=== PATIENT | male | born 1975 | race Two or more races ===

== ENCOUNTER 2025-01-03 08:07 | Emergency (ER) | payer MEDICAID, SELFPAY ==
--- NOTE | 2025-01-03 08:19 | EKG_ITS ---
[facility] Test Date: 2025-01-03 Pat Name: AMBROCIO SAVAGE Department: Room: - Gender: Male Food Services Manager: : 1975 Requested By: ED Temporary Provider Order Number: [id number] Reading MD: ED Temporary Provider Measurements Intervals [place] Rate: 80 P: 40 MS: 157 QRS: 6 QRSD: 94 T: -3 QT: 339 QTc: 392 Interpretive Statements SINUS RHYTHM No previous ECG available for comparison /store/[email or web address]/[id number]
[2025-01-03 08:25] VITALS: BP 150/100; PULSE 76; RESP 19; TEMP 36.8; O2SAT 97
--- NOTE | 2025-01-03 08:32 | XR_ITS ---
Examination: PA lateral chest 2 views TECHNIQUE: Upright PA lateral chest 2 views Exam date and time clinical 2024 0948 hours INDICATIONS: Onset chest pain today FINDINGS: Normal heart size Lungs are clear. The osseous structures are intact IMPRESSION: No active disease
--- NOTE | 2025-01-03 08:32 | PD.EDRME ---
Rapid Medical Screening Exam RME Arrival date/time: 01/03/25 08:07 49-year-old male with a history of hyperlipidemia, hypertension presents to the emergency room with a chief complaint of 9 out of 10 sternal chest pain that radiates to his upper back x 1 day I have greeted and performed a focused initial assessment of this patient. A comprehensive ED assessment and evaluation of the patient, analysis of all test results, and completion of the medical decision making process will be conducted by additional ED providers. Chief Complaint: Chest Pain Vital signs: Vital Signs Temperature 98.2 F 01/03/25 08:25 Pulse Rate 76 01/03/25 08:25 Respiratory Rate 19 01/03/25 08:25 Blood Pressure 150/100 H 01/03/25 08:25 Pulse Oximetry (%) 97 01/03/25 08:25 Oxygen Delivery Method Room Air 01/03/25 08:25 Vital signs reviewed by provider: Yes
[2025-01-03 10:41] LABS: Basophils # (Auto) 0.1 Thou/mm3 (0.0-0.2); Basophils % (Auto) 1 % (0-2.5); Eosinophils # (Auto) 0.2 Thou/mm3 (0.0-0.5); Eosinophils % (Auto) 4 % (0-10); Hematocrit 45.5 % (41.0-53.0); Hemoglobin 15.5 g/dL (13.5-16.0); Immature Granulocytes % (Auto) 0 % (0-0); Immature Granulocytes Auto 0.02 Thou/mm3 (0.00-0.00); Lymphocytes # (Auto) 1.9 Thou/mm3 (1.0-4.8); Lymphocytes % (Auto) 31 % (10-50); Mean Corpuscular HGB Conc 34.1 g/dl (31.0-37.0); Mean Corpuscular Hemoglobin 29.9 pg (25.0-35.0); Mean Corpuscular Volume 88 fL (80-100); Monocytes # (Auto) 0.5 Thou/mm3 (0.0-0.8); Monocytes % (Auto) 8 % (0-12); Neutrophils # (Auto) 3.5 Thou/mm3 (1.8-7.7); Neutrophils % (Auto) 57 % (37-80); Nucleated Red Blood Cell % 0 /100 WBC (0); Platelet Count 181 Thou/mm3 (140-440); RDW Standard Deviation 43.2 fL (35.1-43.9); Red Blood Count 5.19 Miln/mm3 (4.50-5.90); White Blood Count 6.2 Thou/mm3 (3.8-10.6)
[2025-01-03 10:55] LABS: Partial Thromboplastin Time 27.9 Seconds (22.0-36.0); Prothrombin Time 10.8 Seconds (9.0-12.2)
[2025-01-03 11:00] LABS: B-Type Natriuretic Peptide < 20 pg/mL (0-100); Carbon Dioxide 29.1 mMol/L (20.0-31.0); Chloride 106 mMol/L (98-107); Potassium 4.5 mMol/L (3.4-5.1); Sodium 139 mMol/L (136-145)
[2025-01-03 11:01] LABS: Alanine Aminotransferase 32 U/L (10-49); Albumin, Serum 4.5 gm/dL (3.5-5.0); Albumin/Globulin Ratio 1.4 (1.2-2.2); Alkaline Phosphatase 66 U/L (46-116); Anion Gap 4 (7-16); Aspartate Amino Transferase 25 U/L (0-34); BUN/Creatinine Ratio 14 Ratio (12-20); Bilirubin,Total 0.7 mg/dL (0.3-1.2); Blood Urea Nitrogen 11 mg/dL (9-23); Calcium 9.9 mg/dL (8.3-10.6); Calcium (Corrected) 9.9 mg/dL (8.5-10.1); Creatinine (Component) 0.8 mg/dL (0.6-1.3); Globulin 3.2 gm/dL (2.3-3.5); Glucose 106 mg/dL (74-106); Osmolality,Calculated 276 (275-295); Total Protein 7.7 gm/dL (5.7-8.2); Troponin I < 0.002 ng/mL (0.0-0.045); eGFR > 60 See Note
[2025-01-03 12:22] LABS: Collection Type, Urine Clean Catch; Squamous Epithelial Cell,Urine 0 /hpf (0-5)
[2025-01-03 12:30] LABS: Bilirubin,Urine Negative (Negative); Blood,Urine Negative (Negative); Clarity,Urine Clear (Clear/Hazy); Color,Urine Lt-Yellow (Lt Yel-Yel); Glucose, Urine Negative (Negative); Ketones,Urine Negative (Negative); Leukocyte Esterase,Urine Negative (Negative); Nitrite,Urine Negative (Negative); PH,Urine 6.5 (5.0-7.0); Protein,Urine Negative (Neg - Trace); RBC,Urine 2 /hpf (0-3); Urobilinogen,Urine Negative mg/dL (0.0-1.0); WBC,Urine 1 /hpf (0-5)
[2025-01-03 12:36] LABS: Amphetamine/Methamp Scrn,U Negative (Negative); Barbiturate Screen,Urine Negative (Negative); Benzodiazepines Screen,Urine Negative (Negative); Benzoylecgonine Screen, Ur Negative (Negative); Fentanyl Screen,Urine Negative (Negative); Opiate Screen,Urine Negative (Negative); THC Screen,Urine Negative (Negative)
--- NOTE | 2025-01-03 13:34 | EDNOTE_ITS ---
ED Chest Pain RME/HPI General Chief Complaint: Chest Pain Stated Complaint: CHEST PAIN, BACK PAIN, STARTED ABOUT MN Arrival date/time: 01/03/25 08:07 Limitations: no limitations RME / HPI RME / HPI narrative: 01/03/25 08:07 49-year-old male with a history of hyperlipidemia, hypertension presents to the emergency room with a chief complaint of 9 out of 10 sternal chest pain that radiates to his upper back x 1 day I have greeted and performed a focused initial assessment of this patient. A comprehensive ED assessment and evaluation of the patient, analysis of all test results, and completion of the medical decision making process will be conducted by additional ED providers. DR. BOWEN MAIN ED EVALUATION: 49 year old male with no past medical history presents to the Emergency Department with complaint of chest pain since 1 AM today. Pain is mostly in the mid chest area radiating straight back to his mid back area. Movement exacerbates the pain. No other symptoms reported at this time. Related Data Allergies Allergy/AdvReac Type Severity Reaction Status Date / Time No Known Allergies Allergy Verified 01/03/25 08:17 Review of Systems Review of Systems Systems Reviewed: All systems reviewed, normal except as documented Past Medical History Past Medical History CARDIAC: Negative Cardiac Disorders RESPIRATORY: Negative Asthma GENITOURINARY: Negative Renal Disease ENDOCRINE: Negative Diabetes Mellitus Type 2 HEMATOLOGIC: Negative Sickle Cell Disease Social History SMOKING STATUS: Never smoker SUBSTANCE USE: does not use ALCOHOL: Never ED Exam General Limitations: Present no limitations General appearance: Present alert and in no apparent distress Head Head exam: Present atraumatic, normocephalic and normal inspection Eye Eye exam: Present normal appearance, PERRL and EOMI ENT ENT exam: Present normal exam, normal oropharynx and mucous membranes moist Neck Neck exam: Present normal inspection, full ROM and trachea midline Chest Chest inspection: Present normal inspection and symmetric chest wall rise Respiratory Respiratory exam: Present normal lung sounds bilaterally Cardiovascular Cardiovascular exam: Present regular rate, normal rhythm and normal heart sounds Abdominal Exam Abdominal exam: Present soft and normal bowel sounds Extremities Exam Extremities exam: Present normal inspection and full ROM Back Exam Back exam: Present full ROM and paraspinal tenderness (tenderness in the T10- T12, bilateral paraspinal muscles) Neurological Exam Neurological exam: Present alert, oriented X3 and CN II-XII intact Psychiatric Psychiatric exam: Present normal affect and normal mood Skin Skin exam: Present warm, dry, intact and normal color Course Quality Measures none Orders Category Date Time Status CT Screening NOW Care 01/03/25 13:57 Active EKG (ED ONLY) *Do not use* NOW Care 01/03/25 08:[address] angio chest abdomen pelvis Stat Exams 01/03/25 13:56 Completed EKG (ED Only) Stat Exams 01/03/25 08:19 Draft XR chest 2V Stat Exams 01/03/25 08:32 Completed B-Type Natriuretic Peptide Stat Lab 01/03/25 10:35 Completed CBC Stat Lab 01/03/25 10:35 Completed Comprehensive Metabolic Panel Stat Lab 01/03/25 10:35 Completed Drug Screen,Urine Stat Lab 01/03/25 11:49 Completed Magnesium Stat Lab 01/03/25 10:35 Completed Partial Thromboplastin Time Stat Lab 01/03/25 10:35 Completed Prothrombin Time with INR Stat Lab 01/03/25 10:35 Completed Troponin I Stat Lab 01/03/25 10:35 Completed Urinalysis Stat Lab 01/03/25 11:49 Completed Vital Signs Vital signs: Vital Signs Temperature 98.2 F 01/03/25 08:25 Pulse Rate 76 01/03/25 08:25 Respiratory Rate 19 01/03/25 08:25 Blood Pressure 150/100 H 01/03/25 08:25 Pulse Oximetry (%) 97 01/03/25 08:25 Oxygen Delivery Method Room Air 01/03/25 08:25 Chest Pain MDM Narrative MDM Narrative:: IShanna am scribing for and in the presence of Dr. Bowen. Patient data External records reviewed:: None (no previous visits) Clinical information provided by:: patient Social determinants that could affect healthcare access:: none Patient has the following chronic illnesses:: Denies any PMHx, surgeries, daily medications, or known allergies. How is presenting disease/condition affected by chronic disease/condition?: no chronic disease Evaluation data The following diagnostics were reviewed and interpreted by me:: lab results, radiology exam(s) and EKG tracing(s) Lab and/or radiology exams considered but not ordered:: none Interpretation Summary: EKG#1: EKG at 0823 hours. Interpreted by me: sinus rhythm, rate 80, no acute changes, OK interval 157 ms, QRS duration 94 ms, QT/QTc 339/382, P-R-T axis 40, 6, -3 RADIOLOGY Procedure(s): XR chest 2V Accession Number(s): [id number] cc: Nash Pimentel; Dwayne Murrieta MD; Chela Montes PA-C~ Examination: PA lateral chest 2 views TECHNIQUE: Upright PA lateral chest 2 views Exam date and time clinical 2024 0948 hours INDICATIONS: Onset chest pain today FINDINGS: Normal heart size Lungs are clear. The osseous structures are intact IMPRESSION: No active disease Dictated By: Dwayne Murrieta MD Procedure(s): CT angio chest abdomen pelvis Accession Number(s): [id number] cc: Daljit Bowen MD; Dwayne Murrieta MD; Chela Montes PA-C~ Examination: CTA chest, with intravenous contrast. CTA abdomen, with intravenous contrast. CTA pelvis, with intravenous contrast. 2-D sagittal and coronal reconstructions. 3-D reconstructions. Date and time of exam: January 03, 2025 1420 hours INDICATIONS: Chest pain beginning last night CTDI vol (mgy) 11.9 DLP (MGycm) 1012 Technique: Multiple CTA images, 2.0 mm slice thickness, obtained chest, abdomen, pelvis, with the high-resolution 64 slice scanner. 100 cc Isovue-370 is administered intravenously. Sagittal and coronal 2-D reconstructions are obtained. 3-D reconstructions, angiographic images are obtained. 3-D postprocessing, including vascular maximum intensity projections. Low dose protocols were performed. One or more of the following dose reduction techniques were used; automated exposure control, adjustment of the mA and/or KV according to patient size, use of iterative reconstruction technique. Findings: No thoracic aortic aneurysm dilatation or dissection Pulmonary artery segments are not enlarged No pulmonary artery filling defects No paratracheal tracheobronchial or bronchopulmonary adenopathy No pneumonia, pulmonary edema or pleural disease No visualized liver or splenic lesion No gallstones No pancreatic or adrenal mass No renal or ureteral calculi, no hydronephrosis Aorta normal size 12 mm fat-containing umbilical hernia No pericecal inflammatory change No bowel obstruction Minimal thickening of the urinary bladder wall up to 3 mm No prostatomegaly Tiny fat-containing right inguinal hernia Osseous structures are intact IMPRESSION: No thoracic aneurysm dilatation or dissection Negative for pulmonary artery emboli No pneumonia, pulmonary edema or pleural disease No renal or ureteral calculi, no hydronephrosis No CT findings of appendicitis bowel obstruction or diverticulitis Dictated By: Dwayne Murrieta MD Medications / Prescriptions Medications or Prescriptions considered but not ordered:: none Medication administrations:: see above if any Consultations Consultation(s) initiated? (list below): No Diagnosis Chest Pain Differential Diagnosis: costochondritis, chest pain and other (musculoskeletal back pain ) Most likely diagnosis given after review of the tests above:: Chest pain, unspecified. Musculoskeletal back pain Admission Indicated Admission indicated?: not indicated Admission Request Was there a request for admission?: No Disposition Plan Disposition Plan: Discharge Discharge Attestation Discharge Attestation: The patient and all family members were given an opportunity to ask questions and understood the discharge instructions. Discharge instructions specifically effects, indications for sooner follow up or return to the emergency department, and the expected course of current diagnosis. Patient condition: Stable Discharge Plan Plan Patient Disposition: HOME (Self Care) Patient condition on transfer: Stable Prescriptions/Referrals Referrals: Chela Montes PA-C [Primary Care Provider] - In 1 week Problem List Clinical Impression: Chest pain of uncertain etiology, Musculoskeletal back pain Patient/Caregiver Discharge Instructions Education Materials: Back Safety: Lifting, Back Basics: A Healthy Spine, ED Chest Pain, Uncertain Cause Additional Instructions: Take Tylenol 500 mg 2 tabs every 6 hours as needed for pain PLUS Advil 200 mg gel 2 tablets as needed for pain. Please follow-up with your primary care physician within a week. Return to the Emergency Department as needed. Benjamin Tylenol 500 mg 2 tabletas cada 6 horas seg?n sea necesario para el dolor M?S Advil 200 mg gel 2 tabletas seg?n sea necesario para el dolor. Xiomara un seguimiento con lovell m?dico de cabecera dentro de yolande semana. Regrese al Departamento de Emergencias seg?n sea necesario. Print Language: Burkinan Stand Alone Forms: Tanja Award Info., Patient Portal Info Letter
--- NOTE | 2025-01-03 13:56 | XR_ITS ---
Examination: CTA chest, with intravenous contrast. CTA abdomen, with intravenous contrast. CTA pelvis, with intravenous contrast. 2-D sagittal and coronal reconstructions. 3-D reconstructions. Date and time of exam: January 03, 2025 1420 hours INDICATIONS: Chest pain beginning last night CTDI vol (mgy) 11.9 DLP (MGycm) 1012 Technique: Multiple CTA images, 2.0 mm slice thickness, obtained chest, abdomen, pelvis, with the high-resolution 64 slice scanner. 100 cc Isovue-370 is administered intravenously. Sagittal and coronal 2-D reconstructions are obtained. 3-D reconstructions, angiographic images are obtained. 3-D postprocessing, including vascular maximum intensity projections. Low dose protocols were performed. One or more of the following dose reduction techniques were used; automated exposure control, adjustment of the mA and/or KV according to patient size, use of iterative reconstruction technique. Findings: No thoracic aortic aneurysm dilatation or dissection Pulmonary artery segments are not enlarged No pulmonary artery filling defects No paratracheal tracheobronchial or bronchopulmonary adenopathy No pneumonia, pulmonary edema or pleural disease No visualized liver or splenic lesion No gallstones No pancreatic or adrenal mass No renal or ureteral calculi, no hydronephrosis Aorta normal size 12 mm fat-containing umbilical hernia No pericecal inflammatory change No bowel obstruction Minimal thickening of the urinary bladder wall up to 3 mm No prostatomegaly Tiny fat-containing right inguinal hernia Osseous structures are intact IMPRESSION: No thoracic aneurysm dilatation or dissection Negative for pulmonary artery emboli No pneumonia, pulmonary edema or pleural disease No renal or ureteral calculi, no hydronephrosis No CT findings of appendicitis bowel obstruction or diverticulitis
== END 2025-01-03 15:35 | disposition home or self-care (01) ==
PROVIDERS: Nurse Practitioner Family; Emergency Provider Family Medicine; PCP Physician Assistant
DX: R07.9 Chest pain, unspecified (principal); M54.6 Pain in thoracic spine; I10 Essential (primary) hypertension; E78.5 Hyperlipidemia, unspecified
CPT/HCPCS: 36415; 71046; 71275; 74174; 80053; 80307; 81001; 83735; 83880; 84484; 85025; 85610; 85730; 93005; 99285; A4649; Q9967